=== PATIENT | male | born 1950 | race Caucasian/White ===

== ENCOUNTER 2017-04-01 15:11 | Outpatient (RCR) | payer MEDICARE ==
[2017-03-11 10:49] LABS: BASOPHILS % (AUTO) 1 % (0-10); EOSINOPHILS # (AUTO) 0.3 10^3/uL (0.0-0.3); EOSINOPHILS % (AUTO) 6 % (0-10); LYMPHOCYTES # (AUTO) 1.1 X 10^3 (1.0-4.0); LYMPHOCYTES % (AUTO) 23 % (12-44); MEAN CORPUSCULAR HEMOGLOBIN 32 PG (25-34); MEAN CORPUSCULAR HGB CONC 34 G/DL (32-36); MEAN CORPUSCULAR VOLUME 96 FL (80-99); MEAN PLATELET VOLUME 10.8 FL (7.4-10.4); MONOCYTES # (AUTO) 0.5 X 10^3 (0.0-1.0); MONOCYTES % (AUTO) 11 % (0-12); NEUTROPHILS # (AUTO) 2.7 X 10^3 (1.8-7.8); NEUTROPHILS % (AUTO) 60 % (42-75); PLATELET COUNT 202 10^3/uL (130-400); RED BLOOD COUNT 4.42 10^6/uL (4.35-5.85); RED CELL DISTRIBUTION WIDTH 13.7 % (10.0-14.5); WHITE BLOOD COUNT 4.6 10^3/uL (4.3-11.0)
[2017-03-11 11:00] LABS: INR 1.1 (0.8-1.4); PROTHROMBIN TIME PATIENT 13.8 SEC (12.2-14.7)
[2017-03-11 11:10] LABS: ALANINE AMINOTRANSFERASE 20 U/L (0-55); ALBUMIN 4.1 GM/DL (3.2-4.5); ANION GAP 8 MMOL/L (5-14); ASPARTATE AMINO TRANSFERASE 19 U/L (5-34); BILIRUBIN,TOTAL 0.7 MG/DL (0.1-1.0); BLOOD UREA NITROGEN 13 MG/DL (7-18); BUN/CREATININE RATIO 15; CALCIUM 9.3 MG/DL (8.5-10.1); CARBON DIOXIDE 21 MMOL/L (21-32); CHLORIDE 107 MMOL/L (98-107); CREATININE SERUM 0.88 MG/DL (0.60-1.30); GFR ESTIMATED > 60; GLUCOSE 97 MG/DL (70-105); POTASSIUM 4.5 MMOL/L (3.6-5.0); SODIUM 136 MMOL/L (135-145); TOTAL PROTEIN 7.1 GM/DL (6.4-8.2)
[2017-03-11 11:16] LABS: BAND NEUTROPHILS 2 %; BASOPHILS % (MANUAL) 2 %; EOSINOPHILS % (MANUAL) 6 %; LYMPHOCYTES % (MANUAL) 24 %; NEUTROPHILS % (MANUAL) 61 %
--- NOTE | 2017-03-11 14:01 | Diagnostic Imaging Report ---
PROCEDURE: CT angiography of the chest with contrast. TECHNIQUE: Multiple contiguous axial images were obtained through the chest after uneventful bolus administration of intravenous contrast. Reconstructed CTA MIP acquisitions were also performed. INDICATION: Hemoptysis, dyspnea, and fatigue. FINDINGS: There is good opacification of pulmonary arteries without intraluminal filling defect to indicate embolism. There are numerous prominent lymph nodes throughout the mediastinum. The largest is in the precarinal space measuring 2.5 x 1.4 cm. There are also prominent lymph nodes in both pulmonary geovanna. Numerous lymph nodes contain calcification. There is a small amount of right pleural fluid. There is mild dependent atelectasis in both lung bases. There is mild diffuse groundglass opacity with mild diffuse centrilobular emphysema and basilar interstitial prominence. There is no evidence of pericardial effusion. There has been partial right hepatectomy. IMPRESSION: 1. No CTA evidence of pulmonary embolism. Mild diffuse groundglass opacities and interstitial prominence in the lungs may be related to interstitial edema or pneumonitis. Component of congestive heart failure is not excluded. Note is made of coronary artery calcification, indicating coronary artery disease. 2. Mild diffuse mediastinal and bilateral hilar adenopathy could be related to previous granulomatous exposure, although clinical correlation is recommended. Dictated by: Dictated on workstation # [id number]
[2017-03-13 11:50] LABS: TB GOLD QUANTIFERON INTERP Positive (Negative)
[2017-03-15 07:48] LABS: TB GOLD NIL VALUE 0.08 IU/mL (0.00-7.99); TB GOLD TB ANTIGEN-NIL VALUE 0.44 IU/mL (0.00-0.34)
[~2017-04-01 15:11] MED LIST: CATHETER FLUSH 10 ML SYR IV PRN; IOHEXOL 350 MG/ML 150 ML (OMNIPAQUE 350) VIAL IV ONE; NS 100 ML (IVPB) BAG IV ONE
== END 2017-05-22 | disposition home or self-care (01) ==
LOC: RAD 15:11
PROVIDERS: ATTEND Nurse Practitioner Family
DX: I25.10 Atherosclerotic heart disease of native coronary artery without angina pectoris; R06.00 Dyspnea, unspecified; A15.9 Respiratory tuberculosis unspecified; R04.2 Hemoptysis; R53.83 Other fatigue
CPT/HCPCS: 36415; 71275; 80053; 85007; 85027; 85610; 86480; 87070; 87116; 87205

== ENCOUNTER → 2017-11-26 | Outpatient (CLI) | payer MEDICARE ==
[~2017-11-26] MED LIST changes: -NS 100 ML (IVPB) BAG IV ONE; +NS 250 ML (IVPB) BAG IV ONE; +RECEIVED CONTRAST (Hold Metformin) IV SCH
[2017-11-26 13:45] LABS: BUN/CREATININE RATIO 14; CREATININE SERUM 1.11 MG/DL (0.60-1.30); GFR ESTIMATED > 60
--- NOTE | 2017-11-26 15:24 | Diagnostic Imaging Report ---
PROCEDURE: CT angiography of the chest with contrast. TECHNIQUE: Multiple contiguous axial images were obtained through the chest after uneventful bolus administration of intravenous contrast. Reconstructed CTA MIP acquisitions were also performed. INDICATION: COPD, latent TB, shortness of air, history of liver and colorectal cancer, cough. COMPARISON: 03/11/2017. FINDINGS: The pulmonary arteries are diagnostic to the segmental level and no pulmonary embolus is seen. There is atherosclerosis of the aorta without significant stenosis, aneurysm, or dissection. There is coronary atherosclerosis present. No pericardial effusion is seen. There is mild prominence of the heart. There are numerous mediastinal and hilar lymph nodes, some of which are mildly prominent. This appears similar to the prior study. The largest is a right lower paratracheal lymph node measuring up to 1.9 cm in the short axis (image 63 series 2). There is marked atherosclerosis at the origin of the left subclavian artery, with severe stenosis. Mild emphysematous changes are seen in the lung apices. There is mild groundglass opacity in the right lung, with diffuse interstitial opacities throughout the right lung, with basilar predominance. These findings appear increased since 03/11/2017. No definite honeycombing is seen. No pleural effusion or pneumothorax is seen. Degenerative changes are seen in the spine. No acute osseous abnormality is seen. There are postsurgical changes of the right liver. The imaged portions of the upper abdomen are otherwise unremarkable. IMPRESSION: 1. No acute pulmonary embolus seen. 2. Interstitial and groundglass opacities in the lungs, particularly on the right. This is nonspecific, may be due to asymmetric edema or infection in the acute setting, or possibly progressive fibrotic changes chronically. 3. Severe stenosis at the origin of the left subclavian artery. Dictated by: Dictated on workstation # [id number]
== END ==
LOC: RAD 12:47
PROVIDERS: ATTEND Nurse Practitioner Family
DX: R76.11 Nonspecific reaction to tuberculin skin test without active tuberculosis (principal); J44.9 Chronic obstructive pulmonary disease, unspecified; R91.8 Other nonspecific abnormal finding of lung field; I70.8 Atherosclerosis of other arteries; Z85.05 Personal history of malignant neoplasm of liver; Z85.038 Personal history of other malignant neoplasm of large intestine
CPT/HCPCS: 36415; 71275; 82565; 84520; 87070; 87116; 87205